=== PATIENT | male | born 1995 | race Two or more races ===

== ENCOUNTER 2023-12-28 10:48 | Emergency (ER) | payer SELFPAY | END 2023-12-28 12:30 | disposition home or self-care (01) | LOC: MW.ED 10:48 | DX: S00.81XA Abrasion of other part of head, initial encounter (principal); W22.8XXA Striking against or struck by other objects, initial encounter; Y92.89 Other specified places as the place of occurrence of the external cause; Y99.0 Civilian activity done for income or pay | CPT/HCPCS: 99282; 99283 ==

== ENCOUNTER 2025-02-20 16:49 | Emergency (ER) | payer BC ==
[2025-02-20] MEDS: Lidocaine 1% 5 ML VIAL INJECT STA (17:50)
[2025-02-20] MEDS: Diphtheria,Pertussis(Acell),Tetanus Vaccine 0.5 ML Syringe IM ONE (18:38)
== END 2025-02-20 19:06 | disposition home or self-care (01) ==
LOC: MW.ED 16:49
DX: S61.011A Laceration without foreign body of right thumb without damage to nail, initial encounter (principal); Z23 Encounter for immunization; Z75.8 Other problems related to medical facilities and other health care; Z79.899 Other long term (current) drug therapy; W26.8XXA Contact with other sharp object(s), not elsewhere classified, initial encounter; Y93.89 Activity, other specified; Y99.0 Civilian activity done for income or pay
CPT/HCPCS: 12001; 90471; 90715; 99282; J2003; 12041; 99283